=== PATIENT | male | born 1975 | race Caucasian/White ===

== ENCOUNTER 2018-02-19 16:45 | Emergency (ER) | payer MEDICARE ==
[2018-02-19] MEDS ORDERED: Clindamycin/D5W 600 mg/50 ml Premix Bag ONE (17:11)
[2018-02-19 17:21] LABS: #Basophils 0.1 thou/uL (0.0-0.2); #Eosinphils 0.1 thou/uL (0.0-0.7); #Lymphocytes 3.5 thou/uL (1.20-3.40); #Monocytes 0.8 thou/uL (0.11-0.59); #Neutrophils 6.5 thou/uL (1.40-6.50); %Eosinophils 1.3 % (0.0-10.0); %Lymphocytes 31.7 % (21.0-51.0); %Monocytes 6.9 % (0.0-10.0); %Neutrophils 59.1 % (42.0-75.0); Hemoglobin 17.3 g/dL (14.0-18.0); Mean Corpuscular HGB CONC 33.9 g/dL (32.0-36.0); Mean Corpuscular Hemoglobin 28.5 pg (27.0-31.0); Mean Platelet Volume 7.1 fL (7.4-10.4); Platelet Count 329 thou/uL (130-400); RBC Distribution Width 11.7 % (11.5-14.5); Red Blood Cell (RBC) Count 6.06 mill/uL (4.70-6.10)
[2018-02-19 17:22] LABS: PTT 25.8 SEC (22.9-36.1)
[2018-02-19 17:33] LABS: ALT (SGPT) 29 U/L (8-55); AST (SGOT) 34 U/L (5-34); Albumin 4.3 g/dL (3.5-5.0); Alkaline Phosphatase 119 U/L (40-150); Anion Gap 18 mmol/L (10-20); BUN (Urea Nitrogen) 13 mg/dL (8.9-20.6); Bilirubin, Total 0.8 mg/dL (0.2-1.2); Calc. Creatinine Clearance 0 mL/min (70-130); Calcium 9.7 mg/dL (7.8-10.44); Carbon Dioxide 25 mmol/L (22-29); Chloride 92 mmol/L (98-107); Estimated GFR-MDRD 70; Globulin 3.6 g/dL (2.4-3.5); Glucose 183 mg/dL (70-105); Potassium 3.6 mmol/L (3.5-5.1); Protein, Total 7.9 g/dL (6.0-8.3); Sodium 131 mmol/L (136-145)
[2018-02-19] MEDS ORDERED: Ketorolac Tromethamine 30 MG/ML VIAL ONE (17:39)
--- NOTE | 2018-02-19 17:53 | RAD ---
LEFT HAND THREE VIEW 02/19/18 HISTORY: Injury. Cut palm with glass. Abscess. COMPARISON: None. FINDINGS: No fracture. No malalignment. No radiopaque foreign objection is appreciated. Subtle periosteal new b one formation along the medial margin of the proximal phalanx and distal diaphysis of the middle fing er. Mild narrowing of the second and third metacarpophalangeal joints. 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 Soft tissue swelling along the thenar soft tissues. IMPRESSION: No acute fracture or radiopaque foreign object is appreciated. Soft tissue swelling of the thenar sof t tissues. POS: [facility]
[2018-02-19] MEDS ORDERED: Morphine 4 MG/ML VIAL ONE (18:09)
[2018-02-19] MEDS ORDERED: Bacitracin Zinc 1 Packet ONE (18:20)
[2018-02-19] MEDS ORDERED: cefTRIAXone\\ROCEPHIN 1 GM VIAL ONE (18:41)
[2018-02-19] MEDS ORDERED: Adacel (T-DAP) 0.5 ML VIAL ONE (18:58)
[2018-02-19] MEDS ORDERED: Lorazepam 1 MG TAB ONE (19:58)
== END 2018-02-19 20:20 | disposition short-term general hospital (02) ==
LOC: MADERS 16:45
DX: L03.114 Cellulitis of left upper limb (principal); E11.9 Type 2 diabetes mellitus without complications; I10 Essential (primary) hypertension; F41.9 Anxiety disorder, unspecified; F31.9 Bipolar disorder, unspecified; F17.210 Nicotine dependence, cigarettes, uncomplicated; Z79.899 Other long term (current) drug therapy
CPT/HCPCS: 10060; 80053; 83605; 85025; 85610; 85730; 90471; 90715; 96365; 96375; J0696; J1885; J2270; J3490

== ENCOUNTER 2018-02-23 19:50 | Emergency (ER) | payer MEDICARE ==
[2018-02-23] MEDS ORDERED: Diazepam 5 MG TAB ONE (20:05)
[2018-02-23] MEDS ORDERED: Triple Antibiotic Oint 1 GM Packet ONE (20:06)
== END 2018-02-23 20:14 | disposition home or self-care (01) ==
LOC: MADERS 19:50
DX: H93.13 Tinnitus, bilateral (principal); T40.4X5A Adverse effect of other synthetic narcotics, initial encounter; E11.9 Type 2 diabetes mellitus without complications; I10 Essential (primary) hypertension; F41.9 Anxiety disorder, unspecified; F31.9 Bipolar disorder, unspecified; F17.210 Nicotine dependence, cigarettes, uncomplicated; Z79.891 Long term (current) use of opiate analgesic; Z79.899 Other long term (current) drug therapy
CPT/HCPCS: 99283

== ENCOUNTER 2018-06-01 21:53 | Emergency (ER) | payer MEDICARE ==
[2018-06-01] MEDS ORDERED: Ibuprofen 800 MG TAB ONE (22:37)
[2018-06-01] MEDS ORDERED: Acetaminophen 500 MG TAB ONE (22:37)
--- NOTE | 2018-06-01 23:02 | RAD ---
THREE VIEWS RIGHT GREAT TOE: Comparison: None. History: Right great toe pain after injury. FINDINGS: Three views of the right great toe shows an oblique fracture through the proximal phalanx of the grea t toe. This is extraarticular. There are mild degenerative changes in the great toe metatarsal phalan geal joint. Diffuse soft tissue swelling is seen. IMPRESSION: Proximal phalanx fracture of the great toe. POS: [facility]
== END 2018-06-01 22:52 | disposition home or self-care (01) ==
LOC: MADERS 21:53
DX: S92.411A Displaced fracture of proximal phalanx of right great toe, initial encounter for closed fracture (principal); E11.9 Type 2 diabetes mellitus without complications; I10 Essential (primary) hypertension; F41.9 Anxiety disorder, unspecified; F31.9 Bipolar disorder, unspecified; F17.210 Nicotine dependence, cigarettes, uncomplicated; W20.8XXA Other cause of strike by thrown, projected or falling object, initial encounter

== ENCOUNTER 2018-06-03 13:16 | Emergency (ER) | payer MEDICARE | END 2018-06-03 13:45 | disposition home or self-care (01) | LOC: MADERS 13:16 | DX: M79.89 Other specified soft tissue disorders (principal); Z76.5 Malingerer [conscious simulation]; F31.9 Bipolar disorder, unspecified; I10 Essential (primary) hypertension; E11.9 Type 2 diabetes mellitus without complications; F20.9 Schizophrenia, unspecified; F41.9 Anxiety disorder, unspecified; F17.210 Nicotine dependence, cigarettes, uncomplicated; Z79.891 Long term (current) use of opiate analgesic; Z79.899 Other long term (current) drug therapy | CPT/HCPCS: 99283 ==

== ENCOUNTER 2018-07-23 19:17 | Emergency (ER) | payer MEDICARE ==
[~2018-07-23 19:17] MED LIST: Sterile Water Irrigation 250 ML BOT ONE
[2018-07-23] MEDS ORDERED: Lidocaine 1% w/Epinephrine 1:100K 30 ML VIAL ONE (19:20)
[2018-07-23] MEDS ORDERED: Triple Antibiotic Oint 1 GM Packet ONE (19:50)
== END 2018-07-23 19:55 | disposition home or self-care (01) ==
LOC: MADERS 19:17
DX: S51.811A Laceration without foreign body of right forearm, initial encounter (principal); E11.9 Type 2 diabetes mellitus without complications; I10 Essential (primary) hypertension; F41.9 Anxiety disorder, unspecified; F31.9 Bipolar disorder, unspecified; F20.9 Schizophrenia, unspecified; F17.210 Nicotine dependence, cigarettes, uncomplicated; Z79.891 Long term (current) use of opiate analgesic; Z79.899 Other long term (current) drug therapy; W25.XXXA Contact with sharp glass, initial encounter
CPT/HCPCS: 12002; J2001

== ENCOUNTER 2018-07-29 08:21 | Emergency (ER) | payer MEDICARE ==
[2018-07-29] MEDS ORDERED: Cephalexin 500 MG CAP ONE (08:35)
[2018-07-29] MEDS ORDERED: Bacitracin Zinc 1 Packet ONE (08:35)
== END 2018-07-29 08:40 | disposition home or self-care (01) ==
LOC: MADERS 08:21
DX: L03.113 Cellulitis of right upper limb (principal); E11.9 Type 2 diabetes mellitus without complications; I10 Essential (primary) hypertension; F41.9 Anxiety disorder, unspecified; F32.9 Major depressive disorder, single episode, unspecified; F20.9 Schizophrenia, unspecified; F17.210 Nicotine dependence, cigarettes, uncomplicated; Z79.899 Other long term (current) drug therapy
CPT/HCPCS: 99283

== ENCOUNTER 2018-07-31 07:47 | Emergency (ER) | payer MEDICARE | END 2018-07-31 08:55 | disposition home or self-care (01) | LOC: MADERS 07:47 | DX: S61.511D Laceration without foreign body of right wrist, subsequent encounter (principal); I10 Essential (primary) hypertension; E11.9 Type 2 diabetes mellitus without complications; F41.9 Anxiety disorder, unspecified; F32.9 Major depressive disorder, single episode, unspecified; F20.9 Schizophrenia, unspecified; F31.9 Bipolar disorder, unspecified; Z71.6 Tobacco abuse counseling; F17.210 Nicotine dependence, cigarettes, uncomplicated; Z91.14 Patient's other noncompliance with medication regimen; W25.XXXD Contact with sharp glass, subsequent encounter | CPT/HCPCS: 99406 ==

== ENCOUNTER 2018-08-05 07:58 | Emergency (ER) | payer MEDICARE | END 2018-08-05 08:47 | disposition home or self-care (01) | LOC: MADERS 07:58 | DX: S61.511D Laceration without foreign body of right wrist, subsequent encounter (principal); F41.9 Anxiety disorder, unspecified; F32.9 Major depressive disorder, single episode, unspecified; E11.9 Type 2 diabetes mellitus without complications; F20.9 Schizophrenia, unspecified; I10 Essential (primary) hypertension; Z79.899 Other long term (current) drug therapy; X58.XXXD Exposure to other specified factors, subsequent encounter ==

== ENCOUNTER 2019-07-18 18:45 | Emergency (ER) | payer MEDICARE | END 2019-07-18 19:04 | disposition home or self-care (01) | LOC: MADERS 18:45 | DX: S39.012A Strain of muscle, fascia and tendon of lower back, initial encounter (principal); E11.9 Type 2 diabetes mellitus without complications; I10 Essential (primary) hypertension; F41.9 Anxiety disorder, unspecified; F31.9 Bipolar disorder, unspecified; F20.9 Schizophrenia, unspecified; F17.210 Nicotine dependence, cigarettes, uncomplicated | CPT/HCPCS: 99283 ==

== ENCOUNTER 2019-07-19 10:49 | Emergency (ER) | payer MEDICARE ==
[2019-07-19] MEDS ORDERED: Aspirin Chewable 81 MG TAB ONE (11:05)
--- NOTE | 2019-07-19 11:14 | RAD ---
EXAM: Portable chest PROVIDED CLINICAL HISTORY: Chest pain COMPARISON: None FINDINGS: Cardiac and mediastinal silhouette is within normal limits. No focal consolidation, pleural fluid or pneumothorax evident. IMPRESSION: No evidence for an acute cardiopulmonary process.
[2019-07-19 11:35] LABS: Hemoglobin 15.5 g/dL (14.0-18.0); Red Blood Cell (RBC) Count 5.49 mill/uL (4.70-6.10)
[2019-07-19 11:36] LABS: #Lymphocytes 2.1 thou/uL (1.20-3.40); #Monocytes 0.5 thou/uL (0.11-0.59); #Neutrophils 6.3 thou/uL (1.40-6.50); %Basophils 0.7 % (0.0-1.0); %Eosinophils 0.3 % (0.0-10.0); %Lymphocytes 23.6 % (21.0-51.0); %Monocytes 5.4 % (0.0-10.0); %Neutrophils 70.1 % (42.0-75.0); Mean Corpuscular HGB CONC 31.2 g/dL (32.0-36.0); Mean Corpuscular Hemoglobin 28.2 pg (27.0-31.0); Mean Corpuscular Volume 90.3 fL (78.0-98.0); Mean Platelet Volume 7.6 fL (7.4-10.4); Platelet Count 251 thou/uL (130-400); RBC Distribution Width 11.6 % (11.5-14.5)
[2019-07-19 11:37] LABS: #Basophils 0.1 thou/uL (0.0-0.2)
[2019-07-19 11:39] LABS: ALT (SGPT) 23 U/L (8-55); AST (SGOT) 15 U/L (5-34); Albumin 4.2 g/dL (3.5-5.0); Alkaline Phosphatase 112 U/L (40-110); Anion Gap 17 mmol/L (10-20); BUN (Urea Nitrogen) 12 mg/dL (8.9-20.6); Bilirubin, Total 0.4 mg/dL (0.2-1.2); Calc. Creatinine Clearance 0 mL/min (70-130); Carbon Dioxide 27 mmol/L (22-29); Chloride 101 mmol/L (98-107); Estimated GFR-MDRD Greater than 90; Globulin 3.1 g/dL (2.4-3.5); Glucose 124 mg/dL (70-105); Potassium 4.5 mmol/L (3.5-5.1); Protein, Total 7.3 g/dL (6.0-8.3); Sodium 140 mmol/L (136-145)
== END 2019-07-19 14:59 | disposition home or self-care (01) ==
LOC: MADERS 10:49
DX: R07.9 Chest pain, unspecified (principal); G89.29 Other chronic pain; E11.9 Type 2 diabetes mellitus without complications; I10 Essential (primary) hypertension; F41.9 Anxiety disorder, unspecified; F31.9 Bipolar disorder, unspecified; F20.9 Schizophrenia, unspecified; F17.210 Nicotine dependence, cigarettes, uncomplicated
CPT/HCPCS: 36415; 71045; 80053; 84484; 85025; 93005